=== PATIENT | male | born 1940 | race Caucasian/White ===

== ENCOUNTER 2021-08-17 19:09 | Inpatient (IN) ==
[2021-08-17] MEDS ORDERED: SODIUM CHLORIDE 0.9% 500 ML IV ONE (19:34)
--- NOTE | 2021-08-17 19:46 | XRay Report ---
XR chest 1V portable CLINICAL HISTORY: cough COMPARISON STUDY: Chest radiograph September 22, 2018. FINDINGS: Lung volumes are mildly diminished. There is no pneumothorax or pleural effusion. There is interstitial thickening with multifocal bilateral airspace opacities. Specifically, there is left per ihilar and left midlung airspace opacity as well as possible right upper lung opacity Cardiac size is at the upper limits of normal. IMPRESSION: Multifocal bilateral airspace opacities and interstitial thickening. The findings favor multifocal pneumonia. Radiographic follow-up to ensure resolution is recommended. ACT 112: Negative or not required by law. Electronically signed by: Vishal Muñoz M.D. 08/17/2021 7:44 PM
--- NOTE | 2021-08-17 19:51 | Emergency Department Note ---
Impression & Plan 2019 novel coronavirus-infected pneumonia (NCIP), Breathlessness, Hypoxia, Acute hyponatremia ED Provider Note Provider: Titus Anthony MD DATE OF SERVICE: 08/17/2021 CHIEF COMPLAINT: Shortness of breath, fatigue HISTORY OF PRESENT ILLNESS: Patient is a 81-year-old gentleman past medical hi story including hypertension, pneumonia, laryngeal cancer presenting here today via ambulance from home reporting of the past 10 days he has been ill with generalized weakness and shortness of breath. Found by EMS to be hypoxic into the 70s on room air. Not vaccinated for Covid and Covid exposure about 2 weeks ago. Patient does report some diarrhea and some mild abdominal upset. Patient denies any alteration of taste or smell but states has not been eating or drinking that well. Denies any falls or syncope. Denies chest pain or abdominal pain. Patient has been using Tylenol intermittently he states his 's been giving him and states he has had some fevers. Patient denies a smoking history. REVIEW OF SYSTEMS: A total of 10 review of systems was obtained and negative except as stated above in the HPI. PAST MEDICAL HISTORY: As noted above MEDICATIONS: Reviewed home medications the patient includes baby aspirin SOCIAL HISTORY: Non-smoker lives at home with PHYSICAL EXAM: GENERAL: alert and oriented in no acute distress on stretcher however quite fatigued appearing, somewhat hard of hearing Head: normocephalic and atraumatic EYES: No injection, discharge or icterus. NECK: Trachea midline. ENT: Mucous membranes pink and moist. LUNGS: Airway patent. No retractions however mildly tachypneic. Breath sounds clear without significant wheeze appreciated HEART: Regular tachycardic rate and rhythm. No chest wall tenderness ABDOMEN: Soft and non-tender, without guarding or rebound. SKIN: Acyanotic, warm, dry, without rashes EXTREMITIES: Without swelling, tenderness or deformity NEUROLOGICAL: No focal deficits moving all extremities. No aphasia. No facial droop or slurred speech. EK bpm sinus tachycardia without PVC or PAC. No acute ST segment elevation with a left axis and right bundle branch block with significant anterior T wave inversions noted compared to previous from September 092017 slightly increased heart rate but similar morphology otherwise. CONTINUOUS CARDIAC MONITORING: was ordered and showed a heart rate of 100s-140s bpm in sinus tachycardia Patient's laboratory studies and imaging reviewed. Differential includes Infection, dehydration, metabolic abnormality, hypo/hyperglycemia, electrolyte disturbance, anemia, hypoxia, cardiac sources, intracerebral event, toxicologic, neurologic, as well as other pathologies. IMPRESSION/MEDICAL DECISION MAKING: Patient presents tachycardic and hypoxic not vaccinated for Covid with recent exposure reported. X-ray with multifocal airspace opacities questioning pneumonia. Lactate and cultures ordered in addition to basic blood work. Patient not having active chest pain question possible sepsis with pneumonia versus Covid. Blood work with elevated white blood cell count of 21 on the patient does have a chronic elevation in the mid teens from records. Acute hyponatremia of 126 is noted with stable renal function. Troponin not elevated. No transaminitis. TSH within normal limits. Pancreatitis unlikely given a normal lipase. Procalcitonin barely detectable at 0.41. Given this and the x-ray findings with his tachycardia he did receive a small amount of IV fluid here as well as empiric coverage with ceftriaxone for any overlying bacterial component to his respiratory complaints. Order CT of the chest to exclude PE given his tachycardia and hypoxia although likely it is related to Covid. The patient appears on initial reassessment less tachycardia; believe he did improved some to some small amount of fluid hydration here. Covid test returns positive. Given dexamethasone. Updated the patient and patient use the urinal on the side became more tachycardic. Somewhat tenuous on oxygen mask now at 6 to 8 L and as such high flow nasal O2 ordered. Patient did seem to improve on this. Hospitalist contacted for admission. DIAGNOSIS: COVID-19 pneumonia, hypoxia, shortness of breath, hyponatremia DISPOSITION: Hospitalist will evaluate Patient was agreeable with this plan. Critical Care I have personally spent 34 minutes of critical care time in the direct management of this patient. This includes bedside care, interpretation of d iagnostic studies, and testing, discussion with consultants, patient, and other required patient management activities. These 34 minutes is in excess of all separately billable procedures. Past Med/Surg History Medical History (Updated 08/17/21 @ 22:10 by Titus Anthony M.D.) Chronic kidney disease HLD (hyperlipidemia) HTN (hypertension) Vocal cord paralysis Surgical History (Updated 09/13/18 @ 12:02 by Moisés Hankins MD) H/O laryngectomy Hemilaryngectomy History of radical neck dissection Hx of colonoscopy Family History Other Family history non-contributory Social History Smoking Status: Never smoker Second Hand Exposure: No; Hx Alcohol Use: No Hx Substance Use: No Preferred Language: Luxembourgish Communication Ability: Effective Visual Impairment: No Limitations Shoe Stainer Required: No Beliefs That Will Affect Care: None Current Living Situation: Family Feels Safe at Home: Yes Assistive Devices: Denture - Upper, Denture - Lower and Glasses Allergies Allergies Allergy/AdvReac Type Severity Reaction Status Date / Time Sulfa (Sulfonamide Allergy Unknown Verified 08/17/21 19:42 Antibiotics) Home Meds Home Medications Medication Instructions Recorded Confirmed carvedilol 6.25 mg tablet 6.25 mg PO BID 09/09/18 08/17/21 lisinopril 10 mg tablet 10 mg PO DAILY 09/09/18 08/17/21 simvastatin 20 mg tablet 20 mg PO DAILY 09/09/18 08/17/21 aspirin 81 mg tablet,delayed 81 mg PO DAILY 08/17/21 08/17/21 release cholecalciferol (vitamin D3) 25 0 mcg PO DAILY 08/17/21 08/17/21 mcg (1,000 unit) capsule (Vitamin D3) zinc 50 mg tablet 0 mg PO DAILY 08/17/21 08/17/21 Results & Data (ED) Vital Signs Vital Signs - 24 hr 08/17/21 19:18 08/17/21 20:59 08/17/21 21:46 Temperature 37.1 C Temperature Source Oral Pulse Rate 124 H Pulse Rate [Right Finger] 113 H 138 H Pulse Rhythm Regular Pulse Strength Normal Respiratory Rate 26 H 36 H 45 H Respiratory Effort / Characteristics Non-Labored Spontaneous Labored Respiratory Depth Normal Normal Respiratory Pattern Regular Blood Pressure 110/78 Blood Pressure [Right Arm] 105/78 Blood Pressure Mean 88 Blood Pressure Mean [Right Arm] 87 Blood Pressure Position Sitting Pulse Oximetry 86 L 94 80 L Oxygen Delivery Method Room Air Nasal Cannula Oxygen Flow Rate 4 Fraction of Inspired Oxygen Sepsis Recent Fever Within 48 Hours Yes Sepsis New/Unexplained Change in Mental Status No Sepsis Action Taken by Nursing No Action Required 08/17/21 22:00 08/17/21 22:01 Temperature Temperature Source Pulse Rate Pulse Rate [Right Finger] 115 H 114 H Pulse Rhythm Pulse Strength Respiratory Rate 23 20 Respiratory Effort / Characteristics Spontaneous Respiratory Depth Normal Respiratory Pattern Blood Pressure Blood Pressure [Right Arm] 116/79 Blood Pressure Mean Blood Pressure Mean [Right Arm] 91 Blood Pressure Position Pulse Oximetry 95 94 Oxygen Delivery Method High Flow Nasal Cannula High Flow Nasal Cannula Oxygen Flow Rate 35 Fraction of Inspired Oxygen 60 Sepsis Recent Fever Within 48 Hours Sepsis New/Unexplained Change in Mental Status Sepsis Action Taken by Nursing Laboratory Data Result diagrams: 08/17/21 19:08/17/21 19:25 Lab Results 08/17/21 08/17/21 08/17/21 Range/Units 19:25 19:25 19: WBC 21.05 H (4.8-10.8) K/uL RBC 4.24 L (4.7-6.1) M/uL Hgb 14.2 (14.0-18.0) g/dL Hct 39.5 L (42-52) % MCV 93.2 (80-100) fL MCH 33.5 (25-34) pg MCHC 35.9 (32-36) g/dL RDW Std Deviation 41.4 (36.4-46.3) fL RDW Coeff of Chase 12.2 (11.5-14.5) % Plt Count 288 (130-400) K/uL MPV 9.4 (7.4-10.4) fL Immature Gran % (Auto) 0.4 % Neut % (Auto) 92.2 % Lymph % (Auto) 4.8 % [place] % (Auto) 2.1 % Eos % (Auto) 0.4 % Baso % (Auto) 0.1 % Neut # (Auto) 19.38 H (1.4-6.5) K/uL Lymph # (Auto) 1.01 L (1.2-3.4) K/uL [place] # (Auto) 0.45 (0.11-0.59) K/uL Eos # (Auto) 0.09 (0-0.5) K/uL Baso # (Auto) 0.03 (0-0.2) K/uL Immature Gran # (Auto) 0.09 H (0.00-0.02) K/uL Sodium 126 L (136-145) mmol/L Potassium 4.4 (3.5-5.1) mmol/L Chloride 96 L (98-107) mmol/L Carbon Dioxide 24 (21-32) mmol/L Anion Gap 6.0 (3-11) BUN 27 H (7-18) mg/dl Creatinine 1.34 (0.6-1.4) mg/dl Est Cr Clr Drug Dosing 43.4 ml/min Est GFR ( Amer) 57.2 ml/min Est GFR (Non-Af Amer) 49.3 ml/min BUN/Creatinine Ratio 20.2 H (10-20) Glucose 142 H (70-99) mg/dl Osmolality (280-300) mOsm/kg Lactate (0.4-2.0) mmol/L Calcium 9.0 (8.5-10.1) mg/dl Magnesium 2.0 (1.8-2.4) mg/dl Total Bilirubin 0.5 (0.2-1) mg/dl AST 32 (15-37) U/L ALT 22 (12-78) U/L Alkaline Phosphatase 86 (45-117) U/L Troponin I < 0.015 (0-0.045) ng/ml Total Protein 6.8 (6.4-8.2) gm/dl Albumin 2.2 L (3.4-5.0) gm/dl Globulin 4.6 H (2.5-4.0) gm/dl Albumin/Globulin Ratio 0.5 L (0.9-2) Lipase 74 (73-393) U/L Procalcitonin 0.41 (0-0.5) ng/ml TSH 1.730 (0.300-4.500) uIu/ml COVID-19 Eval Order SARS-CoV-2 (PCR) (Negative) 08/17/21 08/17/21 08/17/21 Range/Units 19:32 19:34 19:34 WBC (4.8-10.8) K/uL RBC (4.7-6.1) M/uL Hgb (14.0-18.0) g/dL Hct (42-52) % MCV (80-100) fL MCH (25-34) pg MCHC (32-36) g/dL RDW Std Deviation (36.4-46.3) fL RDW Coeff of Chase (11.5-14.5) % Plt Count (130-400) K/uL MPV (7.4-10.4) fL Immature Gran % (Auto) % Neut % (Auto) % Lymph % (Auto) % [place] % (Auto) % Eos % (Auto) % Baso % (Auto) % Neut # (Auto) (1.4-6.5) K/uL Lymph # (Auto) (1.2-3.4) K/uL [place] # (Auto) (0.11-0.59) K/uL Eos # (Auto) (0-0.5) K/uL Baso # (Auto) (0-0.2) K/uL Immature Gran # (Auto) (0.00-0.02) K/uL Sodium (136-145) mmol/L Potassium (3.5-5.1) mmol/L Chloride (98-107) mmol/L Carbon Dioxide (21-32) mmol/L Anion Gap (3-11) BUN (7-18) mg/dl Creatinine (0.6-1.4) mg/dl Est Cr Clr Drug Dosing ml/min Est GFR ( Amer) ml/min Est GFR (Non-Af Amer) ml/min BUN/Creatinine Ratio (10-20) Glucose (70-99) mg/dl Osmolality 271 L (280-300) mOsm/kg Lactate (0.4-2.0) mmol/L Calcium (8.5-10.1) mg/dl Magnesium (1.8-2.4) mg/dl Total Bilirubin (0.2-1) mg/dl AST (15-37) U/L ALT (12-78) U/L Alkaline Phosphatase (45-117) U/L Troponin I (0-0.045) ng/ml Total Protein (6.4-8.2) gm/dl Albumin (3.4-5.0) gm/dl Globulin (2.5-4.0) gm/dl Albumin/Globulin Ratio (0.9-2) Lipase (73-393) U/L Procalcitonin (0-0.5) ng/ml TSH (0.300-4.500) uIu/ml COVID-19 Eval Order Covid19 at [facility] SARS-CoV-2 (PCR) POSITIVE A* (Negative) 08/17/21 Range/Units 19:43 WBC (4.8-10.8) K/uL RBC (4.7-6.1) M/uL Hgb (14.0-18.0) g/dL Hct (42-52) % MCV (80-100) fL MCH (25-34) pg MCHC (32-36) g/dL RDW Std Deviation (36.4-46.3) fL RDW Coeff of Chase (11.5-14.5) % Plt Count (130-400) K/uL MPV (7.4-10.4) fL Immature Gran % (Auto) % Neut % (Auto) % Lymph % (Auto) % [place] % (Auto) % Eos % (Auto) % Baso % (Auto) % Neut # (Auto) (1.4-6.5) K/uL Lymph # (Auto) (1.2-3.4) K/uL [place] # (Auto) (0.11-0.59) K/uL Eos # (Auto) (0-0.5) K/uL Baso # (Auto) (0-0.2) K/uL Immature Gran # (Auto) (0.00-0.02) K/uL Sodium (136-145) mmol/L Potassium (3.5-5.1) mmol/L Chloride (98-107) mmol/L Carbon Dioxide (21-32) mmol/L Anion Gap (3-11) BUN (7-18) mg/dl Creatinine (0.6-1.4) mg/dl Est Cr Clr Drug Dosing ml/min Est GFR ( Amer) ml/min Est GFR (Non-Af Amer) ml/min BUN/Creatinine Ratio (10-20) Glucose (70-99) mg/dl Osmolality (280-300) mOsm/kg Lactate 1.3 (0.4-2.0) mmol/L Calcium (8.5-10.1) mg/dl Magnesium (1.8-2.4) mg/dl Total Bilirubin (0.2-1) mg/dl AST (15-37) U/L ALT (12-78) U/L Alkaline Phosphatase (45-117) U/L Troponin I (0-0.045) ng/ml Total Protein (6.4-8.2) gm/dl Albumin (3.4-5.0) gm/dl Globulin (2.5-4.0) gm/dl Albumin/Globulin Ratio (0.9-2) Lipase (73-393) U/L Procalcitonin (0-0.5) ng/ml TSH (0.300-4.500) uIu/ml COVID-19 Eval Order SARS-CoV-2 (PCR) (Negative) Administered Medications Discontinued Medications Dexamethasone Sodium Phosphate (DexamethasonePf 10 Mg/Ml Vial) 6 mg IV NOW ONE Stop: 08/17/21 21:50 Last Admin: 08/17/21 21:59 Dose: 6 mg Documented by: [id number] Sodium Chloride (Nss) 500 mls @ 999 mls/hr IV .Q31M ONE Stop: 08/17/21 20:04 Last Infusion: 08/17/21 20:09 Dose: 0 mls/hr Documented by: [id number] Admin: 08/17/21 19:35 Dose: 999 mls/hr Documented by: [id number] Ceftriaxone Sodium (Rocephin) 2,000 mg in 70 mls @ 140 mls/hr IV NOW STA Stop: 08/17/21 21:12 Last Infusion: 08/17/21 21:25 Dose: 0 mls/hr Documented by: [id number] Admin: 08/17/21 20:59 Dose: 140 mls/hr Documented by: [id number] Ioversol (Optiray 320 125ml) 110 ml IV ONCE ONE Stop: 08/17/21 22:13 Last Admin: 08/17/21 22:16 Dose: 110 ml Documented by: [id number] Imaging Data Radiologist's Impression: Chest X-Ray 08/17/21 19:25 XR chest 1V portable CLINICAL HISTORY: cough COMPARISON STUDY: Chest radiograph September 22, 2018. FINDINGS: Lung volumes are mildly diminished. There is no pneumothorax or pleural effusion. There is interstitial thickening with multifocal bilateral airspace opacities. Specifically, there is left perihilar and left midlung airspace opacity as well as possible right upper lung opacity Cardiac size is at the upper limits of normal. IMPRESSION: Multifocal bilateral airspace opacities and interstitial thickening. The findings favor multifocal pneumonia. Radiographic follow-up to ensure resolution is recommended. ACT 112: Negative or not required by law. Electronically signed by: Vishal Muñoz M.D. 08/17/2021 7:44 PM Discharge Plan Visit Data Chief Complaint: Illness Stated Complaint: ILLNESS ED Provider: Titus Anthony Discharge Problem: 2019 novel coronavirus-infected pneumonia (NCIP), Breathlessness, Hypoxia, Acute hyponatremia Patient Disposition: Admitted As Inpatient Forms Stand Alone Forms: My [facility] Prescriptions Prescriptions: No Action simvastatin 20 mg tablet 20 mg PO DAILY RF: 0 lisinopril 10 mg tablet 10 mg PO DAILY RF: 0 carvedilol 6.25 mg tablet 6.25 mg PO BID RF: 0 aspirin 81 mg Tablet,Delayed Release (Dr/Ec) 81 mg PO DAILY RF: 0 zinc 50 mg Tablet 0 mg PO DAILY RF: 0 cholecalciferol (vitamin D3) [Vitamin D3] 25 mcg (1,000 unit) Capsule 0 mcg PO DAILY RF: 0 Referrals Referrals: Mirza Tee MD [Primary Care Provider] -
[2021-08-17 19:52] LABS: Basophils # (auto) 0.03 K/uL (0-0.2); Basophils % (auto) 0.1 %; Eosinophils # (auto) 0.09 K/uL (0-0.5); Eosinophils % (auto) 0.4 %; Hematocrit (blood only) 39.5 % (42-52); Hemoglobin 14.2 g/dL (14.0-18.0); Immature Granulocytes # (auto) 0.09 K/uL (0.00-0.02); Immature Granulocytes % (auto) 0.4 %; Lymphocytes # (auto) 1.01 K/uL (1.2-3.4); Lymphocytes % (auto) 4.8 %; Mean Corpuscular Hemoglobin 33.5 pg (25-34); Mean Corpuscular Hgb Conc 35.9 g/dL (32-36); Mean Corpuscular Volume 93.2 fL (80-100); Mean Platelet Volume 9.4 fL (7.4-10.4); Monocytes # (auto) 0.45 K/uL (0.11-0.59); Monocytes % (auto) 2.1 %; Neutrophils # (auto) 19.38 K/uL (1.4-6.5); Neutrophils % (auto) 92.2 %; Platelet Count 288 K/uL (130-400); RDW Coefficient of Variation 12.2 % (11.5-14.5); RDW Standard Deviation 41.4 fL (36.4-46.3); Red Blood Count 4.24 M/uL (4.7-6.1); White Blood Count 21.05 K/uL (4.8-10.8)
[2021-08-17 20:14] LABS: Alanine Aminotransferase 22 U/L (12-78); Albumin Level 2.2 gm/dl (3.4-5.0); Aspartate Aminotransferase 32 U/L (15-37); BUN Creatinine Ratio 20.2 (10-20); Blood Urea Nitrogen 27 mg/dl (7-18); Carbon Dioxide 24 mmol/L (21-32); Chloride 96 mmol/L (98-107); Creatinine Clr Calc Pharmacy 43.4 ml/min; Est GFR (African American) 57.2 ml/min; Est GFR (Non-African American) 49.3 ml/min; Glucose 142 mg/dl (70-99); Lipase 74 U/L (73-393); Potassium 4.4 mmol/L (3.5-5.1); Sodium 126 mmol/L (136-145)
[2021-08-17 20:25] LABS: Albumin Globulin Ratio 0.5 (0.9-2); Alkaline Phosphatase 86 U/L (45-117); Bilirubin,Total 0.5 mg/dl (0.2-1); Globulin 4.6 gm/dl (2.5-4.0); Total Protein 6.8 gm/dl (6.4-8.2); Troponin I < 0.015 ng/ml (0-0.045)
[2021-08-17] MEDS ORDERED: cefTRIAXone SODIUM 2,000 MG/70 ML BAG IV STA (20:43)
[2021-08-17] MEDS ORDERED: dexAMETHasone**PF** 10 MG/ML VIAL IV ONE (21:49)
[2021-08-17] MEDS ORDERED: OPTIRAY 320 125ml IV ONE (22:12)
[2021-08-17 22:30] LABS: Partial Thromboplastin Ratio 1.2; Partial Thromboplastin Time 30.9 Seconds (21.0-31.0)
[2021-08-17 23:08] LABS: Base Excess ABG -2.6 mEq/L (-9-1.8); HCO3 ABG 20 mmol/L (19-24); Oxygen Saturation ABG 94.8 % (90-95); PCO2 ABG 30 mmHg (35-46); PO2 ABG 68 mmHg (80-95); pH ABG 7.44 (7.35-7.45)
[2021-08-17] MEDS ORDERED: MAGNESIUM SULFATE / D5W 1 GM/100 ML BAG IV ONE (23:12)
[2021-08-17] MEDS ORDERED: MAGNESIUM SULFATE 1GM / D5W BAG IV ONE (23:20)
[2021-08-17 23:22] LABS: Allen Test POS (Pos)
[2021-08-17] MEDS ORDERED: REMDESIVIR 200 MG in SODIUM CHLORIDE 0.9% 210 ML IV STA (23:27)
--- NOTE | 2021-08-17 23:27 | History & Physical Report ---
Date of Service August 17, 2021 Assessment & Plan (1) Acute respiratory failure with hypoxia: Plan: Secondary to severe COVID-19 pneumonia Possible COPD exacerbation hypertension, BP on the lower side hyperlipidemia on statin Rx CRI, serum creatinine better than baseline laryngeal cancer status post partial surgery Hyperglycemia rule out DM past tobacco abuse. Medical telemetry Supplemental O2 Decadron and Remdesivir for severe COVID-19 pneumonia. (Patient was counseled regarding potential adverse effects from Remdesivir therapy and provided with patient education sheet.) Nebs as needed given wheezing No indication for antibiotic Rx for now Pulmonary consult if without improvement. Check hemoglobin A1c DVT prophylaxis per Lovenox subcu DNR Patient's daughter requesting updates from providers. Ms. Tash Claros, contact #[phone]. Text document was generated using [employer] voice recognition software. It may contain grammatical or spelling errors. Kindly contact undersigned for clarification of any documentation item in question. History of Present Illness Chief Complaint: Worsening shortness of breath, Covid exposure Primary Care Provider: Mirza Tee MD History obtained from patient, family, and records. History somewhat limited from patient secondary to hearing impairment. Medical history significant for COPD, chronic vocal cord paralysis, hypertension, hyperlipidemia, PVD, CRI (baseline creatinine 1.3), laryngeal cancer status post partial surgery, past tobacco abuse. Last confinement August 2018 for pneumonia. 1 week history of dry cough symptoms, and generalized weakness with worsening shortness of breath. No actual chest pain. GI upset with diarrhea symptoms. Possible sick COVID-19 contacts. Patient has not received COVID-19 vaccination. O2 sats 80s at the ER. Patient given Decadron at the ER. Ceftriaxone given for pneumonia. 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 Allergies Allergy/AdvReac Type Severity Reaction Status Date / Time Sulfa (Sulfonamide Allergy Unknown Verified 08/17/21 19:42 Antibiotics) Home Medications Medication Instructions Recorded Confirmed Type carvedilol 6.25 mg tablet 6.25 mg PO BID 09/09/18 08/17/21 History lisinopril 10 mg tablet 10 mg PO DAILY 09/09/18 08/17/21 History simvastatin 20 mg tablet 20 mg PO DAILY 09/09/18 08/17/21 History aspirin 81 mg tablet,delayed 81 mg PO DAILY 08/17/21 08/17/21 History release cholecalciferol (vitamin D3) 25 0 mcg PO DAILY 08/17/21 08/17/21 History mcg (1,000 unit) capsule (Vitamin D3) zinc 50 mg tablet 0 mg PO DAILY 08/17/21 08/17/21 History Past Med/Surg History Medical History (Updated 08/18/21 @ 07:55 by Wali Dickens MD) Chronic kidney disease HLD (hyperlipidemia) HTN (hypertension) Vocal cord paralysis Surgical History (Updated 09/13/18 @ 12:02 by Moisés Hankins MD) H/O laryngectomy Hemilaryngectomy History of radical neck dissection Hx of colonoscopy Family History Other Family history non-contributory Social History Smoking Status: Never smoker Second Hand Exposure: No; Do You Dip or Chew Tobacco: No; Hx Alcohol Use: No Hx Substance Use: No Preferred Language: Romanian Communication Ability: Effective Visual Impairment: No Limitations Taffy Puller Required: No Beliefs That Will Affect Care: None Current Living Situation: Spouse Current Living Situation Comment: lives with Other Information That Helps Us Care for You: No Feels Safe at Home: Yes Safety Concerns: Feels Safe At This Time Assistive Devices: Cane Review of Systems Review of Systems: As per HPI, all 10 systems reviewed, all other ROS negative Physical Exam Physical Exam: GENERAL: Slightly uncomfortable, hard of hearing, dysphonic, minimal respiratory distress SKIN: Normal color, warm HEENT: [place] palpebral conjunctivae, no ptosis, dry buccal mucosa, nasal cannula in place NECK : Supple, no tenderness CHEST : Decreased breath sounds, occasional expiratory wheezes, no tenderness HEART : Tachycardic, no obvious murmurs ABDOMEN: Some distention, nontender EXTREMITIES : No LE swelling/tenderness, no other conspicuous deformities noted NEUROLOGIC : Coherent, no facial asymmetry, hard of hearing, dysphonic, no other gross focality Results & Data Results & Data ([facility]) Vital Signs (Past 12 Hours) Vital Signs Temp Pulse Pulse Resp BP BP Pulse Ox 08/17/21 22:55 110 H 29 H 94 08/17/21 22:01 114 H 20 94 08/17/21 22:00 115 H 23 116/79 95 08/17/21 21:46 138 H 45 H 80 L 08/17/21 20:59 113 H 36 H 105/78 94 08/17/21 19:18 37.1 C 124 H 26 H 110/78 86 L Laboratory Results Laboratory Results WBC 21.05 K/uL (4.8-10.8) H 08/17/21 19:25 RBC 4.24 M/uL (4.7-6.1) L 08/17/21 19:25 Hgb 14.2 g/dL (14.0-18.0) 08/17/21 19: Hct 39.5 % (42-52) L 08/17/21 19: MCV 93.2 fL (80-100) 08/17/21 19: MCH 33.5 pg (25-34) 08/17/21 19: MCHC 35.9 g/dL (32-36) 08/17/21 19: RDW Std Deviation 41.4 fL (36.4-46.3) 08/17/21 19: RDW Coeff of Chase 12.2 % (11.5-14.5) 08/17/21: Plt Count 288 K/uL (130-400) 08/17/21 19:25 MPV 9.4 fL (7.4-10.4) 08/17/21 19:25 Immature Gran % (Auto) 0.4 % 08/17/21 19:25 Neut % (Auto) 92.2 % 08/17/21 19: Lymph % (Auto) 4.8 % 08/17/21 19:25 Chambers % (Auto) 2.1 % 08/17/21 19:25 Eos % (Auto) 0.4 % 08/17/21 19:25 Baso % (Auto) 0.1 % 08/17/21 19:25 Neut # (Auto) 19.38 K/uL (1.4-6.5) H 08/17/21 19:25 Lymph # (Auto) 1.01 K/uL (1.2-3.4) L 08/17/21 19:25 Chambers # (Auto) 0.45 K/uL (0.11-0.59) 08/17/21 19:25 Eos # (Auto) 0.09 K/uL (0-0.5) 08/17/21 19:25 Baso # (Auto) 0.03 K/uL (0-0.2) 08/17/21 19:25 Immature Gran # (Auto) 0.09 K/uL (0.00-0.02) H 08/17/21 19:25 APTT 30.9 Seconds (21.0-31.0) 08/17/21 19: PTT Ratio 1.2 08/17/21 19:25 ABG pH 7.44 (7.35-7.45) 08/17/21 22:56 ABG pCO2 30 mmHg (35-46) L 08/17/21 22:56 ABG pO2 68 mmHg (80-95) L 08/17/21 22:56 ABG HCO3 20 mmol/L (19-24) 08/17/21 22:56 ABG O2 Saturation 94.8 % (90-95) 08/17/21 22:56 ABG Base Excess -2.6 mEq/L (-9-1.8) 08/17/21 22:56 David Test POS (Pos) 08/17/21 22:56 Barometric Pressure 724.5 mm/Hg 08/17/21 22:56 Oxygen Given 35 08/17/21 22:56 Sodium 126 mmol/L (136-145) L 08/17/21 19:25 Potassium 4.4 mmol/L (3.5-5.1) 08/17/21 19:25 Chloride 96 mmol/L (98-107) L 08/17/21 19:25 Carbon Dioxide 24 mmol/L (21-32) 08/17/21 19:25 Anion Gap 6.0 (3-11) 08/17/21 19:25 BUN 27 mg/dl (7-18) H 08/17/21 19:25 Creatinine 1.34 mg/dl (0.6-1.4) 08/17/21 19:25 Est Cr Clr Drug Dosing 43.4 ml/min 08/17/21 19:25 Est GFR ( Amer) 57.2 ml/min 08/17/21 19:25 Est GFR (Non-Af Amer) 49.3 ml/min 08/17/21 19:25 BUN/Creatinine Ratio 20.2 (10-20) H 08/17/21 19:25 Glucose 142 mg/dl (70-99) H 08/17/21 19:25 Osmolality 271 mOsm/kg (280-300) L 08/17/21 19:32 Lactate 1.3 mmol/L (0.4-2.0) 08/17/21 19:43 Calcium 9.0 mg/dl (8.5-10.1) 08/17/21 19:25 Magnesium 2.0 mg/dl (1.8-2.4) 08/17/21 19:25 Total Bilirubin 0.5 mg/dl (0.2-1) 08/17/21 19:25 AST 32 U/L (15-37) 08/17/21 19:25 ALT 22 U/L (12-78) 08/17/21 19:25 Alkaline Phosphatase 86 U/L (45-117) 08/17/21 19:25 Troponin I < 0.015 ng/ml (0-0.045) 08/17/21 19:25 Total Protein 6.8 gm/dl (6.4-8.2) 08/17/21 19:25 Albumin 2.2 gm/dl (3.4-5.0) L 08/17/21 19:25 Globulin 4.6 gm/dl (2.5-4.0) H 08/17/21 19:25 Albumin/Globulin Ratio 0.5 (0.9-2) L 08/17/21 19: Lipase 74 U/L (73-393) 08/17/21 19:25 Procalcitonin 0.41 ng/ml (0-0.5) 08/17/21 19:25 TSH 1.730 uIu/ml (0.300-4.500) 08/17/21 19:25 COVID-19 Eval Order Covid19 at [facility] 08/17/21 19:34 SARS-CoV-2 (PCR) POSITIVE (Negative) A* 08/17/21 19:34 Impressions Chest X-Ray 08/17/21 19:25 XR chest 1V portable CLINICAL HISTORY: cough COMPARISON STUDY: Chest radiograph September 22, 2018. FINDINGS: Lung volumes are mildly diminished. There is no pneumothorax or pleural effusion. There is interstitial thickening with multifocal bilateral airspace opacities. Specifically, there is left perihilar and left midlung airspace opacity as well as possible right upper lung opacity Cardiac size is at the upper limits of normal. IMPRESSION: Multifocal bilateral airspace opacities and interstitial thickening. The findings favor multifocal pneumonia. Radiographic follow-up to ensure resolution is recommended. ACT 112: Negative or not required by law. Electronically signed by: Vishal Muñoz M.D. 08/17/2021 7:[address] chest initial read: Allowing for limitations, no apparent central pulmonaryemboli. Bilateral pulmonaryinfiltrates. Mild mediastinal and hilar adenopathy. Cardiomegaly. Small hiatal hernia EKG as per my interpretation:Rate 120, sinus tachycardia, LAD, LAFB, RBBB, LVH
[2021-08-17] MEDS ORDERED: LEVALBUTEROL 1.25MG/0.5ML NEB INH STA (23:31)
[2021-08-17] MEDS ORDERED: XOPENEX/ATROVENT 1.25mg/0.5MG NEB COMBO NEB STA (23:31)
[2021-08-17] MEDS ORDERED: IPRATROPIUM BROMIDE NEB SOLN 0.02% 2.5 ML VIAL INH STA (23:31)
[2021-08-17] MEDS ORDERED: METOPROLOL TARTRATE 25 MG TAB PO STA (23:35)
[2021-08-17] MEDS ORDERED: SODIUM CHLORIDE 0.9% 1000ML 1,000 ML IV ONE (23:35)
[2021-08-18] MEDS ORDERED: PROMETHAZINE HCL 12.5 MG in SODIUM CHLORIDE 0.9% 50 ML IV PRN (00:50)
[2021-08-18] MEDS ORDERED: ACETAMINOPHEN 325 MG TAB PO PRN (00:50)
[2021-08-18] MEDS ORDERED: LEVALBUTEROL TARTRATE 15 GM HFA.AER.AD INH PRN (00:50)
[2021-08-18] MEDS ORDERED: METOPROLOL TARTRATE 1 MG/ML VIAL IV ONE (01:52)
[2021-08-18 02:01] LABS: Appearance Urine Clear (Clear); Bilirubin Urine Negative (Negative); Blood Urine 1+ (Negative); Cast Urine Automated 0 /lpf (0-5); Color Urine Yellow; Glucose Urine UA Negative (Negative); Ketones Urine Negative (Negative); Leukocyte Esterase Urine Negative (Negative); Nitrite Urine Negative (Negative); Protein Urine 1+ (Negative); RBC Urine Automated 0-4 /hpf (0-4); Specific Gravity Urine 1.041 (1.000-1.030); Urobilinogen Urine Negative (Negative); pH Urine 5.5 (4.5-7.5)
[2021-08-18] MEDS: guaiFENesin 600 MG TABCR PO SCH ×3 (02:04→20:25)
[2021-08-18 02:11] LABS: Bacteria Urine Automated 1+ (Negative)
[2021-08-18] MEDS ORDERED: SODIUM CHLORIDE 0.9% 10ML FLUSH IV SCH (03:00)
[2021-08-18] MEDS ORDERED: XOPENEX/ATROVENT 1.25mg/0.5MG NEB COMBO NEB STA (03:48)
[2021-08-18] MEDS ORDERED: IPRATROPIUM BROMIDE NEB SOLN 0.02% 2.5 ML VIAL INH STA (04:14)
[2021-08-18] MEDS ORDERED: LEVALBUTEROL 1.25MG/0.5ML NEB INH STA (04:14)
[2021-08-18] MEDS: dexAMETHasone 6 MG in SYRINGE 0 ML IV SCH (04:54)
[2021-08-18 05:08] LABS: Estimated Average Glucose 126 mg/dl
[2021-08-18 07:25] LABS: Hematocrit (blood only) 38.7 % (42-52); Hemoglobin 13.8 g/dL (14.0-18.0); Mean Corpuscular Hemoglobin 33.1 pg (25-34); Mean Corpuscular Hgb Conc 35.7 g/dL (32-36); Mean Corpuscular Volume 92.8 fL (80-100); Mean Platelet Volume 9.3 fL (7.4-10.4); Platelet Count 293 K/uL (130-400); RDW Coefficient of Variation 12.3 % (11.5-14.5); RDW Standard Deviation 41.8 fL (36.4-46.3); Red Blood Count 4.17 M/uL (4.7-6.1); White Blood Count 19.31 K/uL (4.8-10.8)
[2021-08-18 07:47] LABS: Basophils # (auto) 0.02 K/uL (0-0.2); Basophils % (auto) 0.1 %; Immature Granulocytes # (auto) 0.05 K/uL (0.00-0.02); Immature Granulocytes % (auto) 0.3 %; Lymphocytes # (auto) 0.54 K/uL (1.2-3.4); Lymphocytes % (auto) 2.8 %; Monocytes # (auto) 0.47 K/uL (0.11-0.59); Monocytes % (auto) 2.4 %; Neutrophils # (auto) 18.23 K/uL (1.4-6.5); Neutrophils % (auto) 94.4 %
[2021-08-18 08:00] LABS: Albumin Level 2.1 gm/dl (3.4-5.0); BUN Creatinine Ratio 16.9 (10-20); Calcium 9.1 mg/dl (8.5-10.1); Creatinine Clr Calc Pharmacy 39.9 ml/min; Est GFR (African American) 58.8 ml/min; Est GFR (Non-African American) 50.7 ml/min; Potassium 4.8 mmol/L (3.5-5.1)
[2021-08-18] MEDS: carvediloL 3.125 MG TAB PO SCH ×2 (08:08→20:24)
[2021-08-18] MEDS: SIMVASTATIN 20 MG TAB PO SCH (08:09)
[2021-08-18] MEDS: ASPIRIN 81 MG ECTAB PO SCH (08:09)
[2021-08-18 08:10] LABS: Albumin Globulin Ratio 0.5 (0.9-2); Bilirubin,Total 0.3 mg/dl (0.2-1); C Reactive Protein 27.6 mg/dl (0-0.29); Globulin 4.6 gm/dl (2.5-4.0); Total Protein 6.7 gm/dl (6.4-8.2)
--- NOTE | 2021-08-18 08:56 | CT Scan Report ---
CT ANGIOGRAPHY OF THE CHEST, PULMONARY EMBOLUS PROTOCOL CLINICAL HISTORY: PE, shortness of breath, tachycardia and hypoxia COMPARISON STUDY: Chest CT September 09, 2018. Chest radiograph August 17, 2021. TECHNIQUE: Following IV administration of 110 mL of Optiray, helical axial images of the chest were o btained utilizing the pulmonary embolus protocol. Maximal intensity projections and sagittal and cor onal reformats were viewed on an independent 3D workstation. IV contrast was administered without co mplication. Automated exposure control was utilized for the study. A dose lowering technique was ut ilized adhering to the principles of ALARA. CT DOSE: 311.40 mGy.cm FINDINGS: No pulmonary emboli are identified although the segmental and subsegmental pulmonary vesse ls suboptimally assessed due to respiratory motion. There is no pericardial effusion. There are sever al mildly enlarged mediastinal and bilateral hilar lymph nodes. These measure up to 1.3 cm in short a xis diameter. There are extensive groundglass opacities throughout the lungs with multifocal consolid ation, including a 2.3 cm focus of consolidation within the lingula on image 139 of 246. Central airw ays are patent. Lungs are somewhat be assessed due to respiratory motion. There is no pneumothorax or pleural effusion. Visualized portions of the upper abdomen are unremarkable. IMPRESSION: 1. No pulmonary emboli identified although segmental and subsegmental pulmonary arteries suboptimally assessed due to respiratory motion. 2. Extensive multifocal airspace opacities within lungs consistent with viral pneumonia. A follow-up chest CT in 3 months to ensure resolution is recommended. 3. Multiple mildly enlarged mediastinal and bilateral hilar lymph nodes which are likely reactive. ACT 112: Negative or not required by law. Electronically signed by: Vishal Muñoz M.D. 08/18/2021 8:55 AM
[2021-08-18] MEDS ORDERED: dexAMETHasone 6 MG in SYRINGE 0 ML IV SCH (09:00)
--- NOTE | 2021-08-18 12:39 | Hospitalist Progress Note ---
Date of Service August 18, 2021 Assessment & Plan (1) Acute respiratory failure with hypoxia: Plan: Secondary to severe COVID-19 pneumonia Possible COPD exacerbation hypertension, BP on the lower side hyperlipidemia on statin Rx CRI, serum creatinine better than baseline laryngeal cancer status post partial surgery Hyperglycemia rule out DM past tobacco abuse. Overall patient is doing okay. Currently on high flow nasal cannula. CTA is negative for any pulmonary embolism. Globin at 19.3 today. Patient remains afebrile. Hemodynamically doing okay. Decadron and Remdesivir for severe COVID-19 pneumonia. Nebs as needed given wheezing No indication for antibiotic Rx for now. Discontinue maintenance IV fluids. Lovenox for DVT prophylaxis. Pulmonary consult if without improvement. Check hemoglobin A1c DVT prophylaxis per Lovenox subcu DNR Ms. Tash Claros, contact #[phone]; daughter was updated today. Text document was generated using [employer] voice recognition software. It may contain grammatical or spelling errors. Kindly contact undersigned for clarification of any documentation item in question. Admission and Anticipated Discharge Date Admission Date: August 17, 2021 Subjective Overall patient is doing okay. Currently on high flow nasal cannula. Denies any worsening shortness of breath but does endorse cough. Denies any chest pain or abdominal pain. Denies any nausea or vomiting. Oriented to place and person but not time. Review of Systems Review of Systems: All systems reviewed & are unremarkable except as noted in HPI & below Physical Exam Physical Exam: General: A&Ox2 HENT: NCAT, MMM, EOMI Eyes: PERRLA Neck: Supple, normal range of motion CVS: normal rate and rhythm Resp: b/l decrease breath sounds Abdomen: Soft, ND/NT, +BS Extremities: absence of any edema Neuro: face symmetric, no gross focal deficit appreciated Skin: warm and dry MSK: no joint swelling/erythema Results & Data Results & Data ([facility]) Vital Signs (Past 12 Hours) Vital Signs Temp Pulse Pulse Resp BP Pulse Ox 08/18/21 12:00 36.5 C 87 20 118/81 91 08/18/21 11:27 18 88 L 08/18/21 10:42 100 08/18/21 09:00 99 H 08/18/21 07:46 36.5 C 97 H 12 117/74 89 L 08/18/21 07:32 77 18 89 L 08/18/21 05:35 78 18 90 08/18/21 03:15 36.4 C L 98 H 36 H 114/82 89 L 08/18/21 02:58 79 20 92 08/18/21 02:05 96 H 08/18/21 00:50 36.5 C 105 H 28 H 105/73 92
[2021-08-18] MEDS: REMDESIVIR 100 MG in SODIUM CHLORIDE 0.9% 230 ML IV SCH (20:24)
--- NOTE | 2021-08-19 04:52 | Electrocardiogram Report ---
Test Reason : Blood Pressure : / mmHG Vent. Rate : 122 BPM Atrial Rate : 122 BPM P-R Int : 188 ms QRS Dur : 124 ms QT Int : 292 ms P-R-T Axes : 022 -38 -05 degrees QTc Int : 416 ms Poor data quality, interpretation may be adversely affected Sinus tachycardia Left axis deviation Right bundle branch block Minimal voltage criteria for LVH, may be normal variant Abnormal ECG When compared with ECG of 09-SEP-2018 20:46, No significant change was found Confirmed by Toni Browne ([id number]) on 08/19/2021 4:52:25 AM Referred By: REFERRED SELF Confirmed By:Toni Browne
[2021-08-19] MEDS: SIMVASTATIN 20 MG TAB PO SCH (08:38)
[2021-08-19] MEDS: ASPIRIN 81 MG ECTAB PO SCH (08:38)
[2021-08-19] MEDS: carvediloL 3.125 MG TAB PO SCH ×2 (08:38→19:44)
[2021-08-19] MEDS: guaiFENesin 600 MG TABCR PO SCH ×2 (08:38→19:44)
[2021-08-19] MEDS: ENOXAPARIN INJ 40 MG/0.4 ML SYR SQ SCH (08:38)
[2021-08-19] MEDS: dexAMETHasone 6 MG in SYRINGE 0 ML IV SCH (08:38)
--- NOTE | 2021-08-19 14:41 | Hospitalist Progress Note ---
Date of Service August 19, 2021 Assessment & Plan (1) Acute respiratory failure with hypoxia: Plan: Secondary to severe COVID-19 pneumonia Overall patient is doing okay. Currently on high flow nasal cannula. CTA is negative for any pulmonary embolism. White count at 19.3 . Patient remains afebrile. Hemodynamically doing okay. Decadron and Remdesivir for severe COVID-19 pneumonia. Nebs as needed given wheezing Condition is a little worse and requiring high flow oxygen to maintain saturation CRP has been more than 27 Will ask for pulmonary evaluation for possible use of Tocilizumab and/or baricitinib Possible COPD exacerbation No indication for antibiotic Rx for now. Procalcitonin is not elevated hypertension, BP on the lower side hyperlipidemia on statin Rx CRI, serum creatinine better than baseline laryngeal cancer status post partial surgery Hyperglycemia rule out DM Check hemoglobin A1c-6.0 past tobacco abuse. Lovenox for DVT prophylaxis. DVT prophylaxis per Lovenox subcu DNR Ms. Tash Claros, contact #[phone]; daughter was updated today. . Admission and Anticipated Discharge Date Admission Date: August 17, 2021 Subjective 10/19/2021 The patient was seen and examined in telemetry unit and in the Covid room He has pain in complaining of more shortness of breath Requiring 40 L of 90% FiO2 to maintain saturation Has cough Review of Systems Review of Systems: All systems reviewed and are unremarkable except as noted below Respiratory: Moderate shortness of breath at rest Musculoskeletal: Generally weak and lethargic Physical Exam Physical Exam: Sitting on the bed with moderate respiratory distress Constitutional: well developed, well nourished, + ill appearing and + obese Eyes: PERRL, conjunctivae normal, anicteric sclerae ENMT: external ear and nose normal, oropharynx normal Neck: trachea midline, no thyromegaly Respiratory: + respiratory distress and + cough Auscultation: + diminished lung sounds and + crackles (At the bases); no wheezes Gastrointestinal (Abdomen): Inspection/Auscultation: normal bowel sounds; abdomen not distended Percussion/Palpation: abdomen soft; abdomen nontender Musculoskeletal: No acute arthritis in any joint Neurologic: Alert, awake and oriented x3. Generally weak and lethargic Lymphatic: no cervical or axillary lymphadenopathy Results & Data Results & Data ([facility]) Vital Signs (Past 12 Hours) Vital Signs Temp Pulse Pulse Resp BP Pulse Ox 10/27/21 13:44 110 H 24 99 08/19/21 11:32 36.7 C 83 22 95/74 L 95 08/19/21 10:37 20 91 08/19/21 07:45 36.4 C L 91 H 19 116/77 90 08/19/21 07:44 95 H 08/19/21 07:16 90 22 95 08/19/21 05:29 32 H 92 08/19/21 05:15 82 L 08/19/21 04:09 14 91 08/19/21 03:52 90 Medications Administered Current Inpatient Medications Acetaminophen (Acetaminophen 325 Mg Tab) 650 mg PO Q4H PRN PRN Reason: Pain or Fever Stop: 09/17/21 00:49 Last Admin: 08/19/21 12:57 Dose: 650 mg Documented by: Aspirin (Aspirin 81 Mg Ectab) 81 mg PO DAILY [facility] Stop: 09/17/21 08:59 Last Admin: 08/19/21 08:38 Dose: 81 mg Documented by: Carvedilol (Carvedilol 3.125 Mg Tab) 3.125 mg PO BID [facility] Stop: 09/17/21 08:59 Last Admin: 08/19/21 08:38 Dose: 3.125 mg Documented by: Enoxaparin Sodium (Enoxaparin Inj 40 Mg/0.4 Ml Syr) 40 mg SQ QAM [facility] Stop: 09/18/21 08:59 Last Admin: 08/19/21 08:38 Dose: 40 mg Documented by: Guaifenesin (Guaifenesin 600 Mg Tabcr) 600 mg PO Q12 [facility] Stop: 09/17/21 00:49 Last Admin: 08/19/21 08:38 Dose: 600 mg Documented by: Remdesivir 100 mg/ Sodium (Chloride) 250 mls @ 250 mls/hr IV Q24H [facility]; Protocol Stop: 08/21/21 20:59 Last Infusion: 08/18/21 21:46 Dose: Infused Documented by: Promethazine HCl 12.5 mg/ (Sodium Chloride) 50.5 mls @ 202 mls/hr IV Q6H PRN PRN Reason: Nausea And Vomiting Stop: 09/17/21 00:49 Dexamethasone 6 mg/ Syringe 1.5 mls @ 1 mls/min IV DAILY [facility] Stop: 09/17/21 03:49 Last Admin: 08/19/21 08:38 Dose: 1 mls/min Documented by: Levalbuterol HCl (Levalbuterol Tartrate 15 Gm Hfa.Aer.Ad) 2 puffs INH Q4H PRN PRN Reason: sob/wheeze Stop: 09/17/21 00:49 Simvastatin (Simvastatin 20 Mg Tab) 20 mg PO DAILY [facility] Stop: 09/17/21 08:59 Last Admin: 08/19/21 08:38 Dose: 20 mg Documented by:
[2021-08-19] MEDS ORDERED: TOCILIZUMAB IV ONE (17:30)
[2021-08-19] MEDS ORDERED: SODIUM CHLORIDE 0.9% IV ONE (17:30)
[2021-08-19] MEDS: REMDESIVIR 100 MG in SODIUM CHLORIDE 0.9% 230 ML IV SCH (20:13)
[2021-08-20 08:53] LABS: Basophils # (auto) 0.01 K/uL (0-0.2); Basophils % (auto) 0.1 %; Eosinophils # (auto) 0.02 K/uL (0-0.5); Eosinophils % (auto) 0.1 %; Hematocrit (blood only) 39.3 % (42-52); Immature Granulocytes # (auto) 0.08 K/uL (0.00-0.02); Immature Granulocytes % (auto) 0.5 %; Lymphocytes # (auto) 1.24 K/uL (1.2-3.4); Lymphocytes % (auto) 7.5 %; Mean Corpuscular Hemoglobin 33.5 pg (25-34); Mean Corpuscular Hgb Conc 35.6 g/dL (32-36); Mean Platelet Volume 9.1 fL (7.4-10.4); Monocytes # (auto) 0.23 K/uL (0.11-0.59); Monocytes % (auto) 1.4 %; Neutrophils # (auto) 14.93 K/uL (1.4-6.5); Neutrophils % (auto) 90.4 %; Platelet Count 294 K/uL (130-400); RDW Coefficient of Variation 12.5 % (11.5-14.5); RDW Standard Deviation 43.2 fL (36.4-46.3); Red Blood Count 4.18 M/uL (4.7-6.1); White Blood Count 16.51 K/uL (4.8-10.8)
[2021-08-20 09:10] LABS: Albumin Level 2.2 gm/dl (3.4-5.0); BUN Creatinine Ratio 24.1 (10-20); C Reactive Protein 11.6 mg/dl (0-0.29); Calcium 9.5 mg/dl (8.5-10.1); Est GFR (African American) 56.7 ml/min; Est GFR (Non-African American) 48.9 ml/min; Magnesium 2.2 mg/dl (1.8-2.4); Potassium 4.2 mmol/L (3.5-5.1)
[2021-08-20] MEDS: dexAMETHasone 6 MG in SYRINGE 0 ML IV SCH (09:11)
[2021-08-20] MEDS: ASPIRIN 81 MG ECTAB PO SCH (09:12)
[2021-08-20] MEDS: carvediloL 3.125 MG TAB PO SCH ×2 (09:12→20:09)
[2021-08-20] MEDS: SIMVASTATIN 20 MG TAB PO SCH (09:12)
[2021-08-20] MEDS: guaiFENesin 600 MG TABCR PO SCH ×2 (09:12→20:09)
[2021-08-20 09:13] LABS: Albumin Globulin Ratio 0.5 (0.9-2); Bilirubin,Total 0.5 mg/dl (0.2-1); Globulin 4.1 gm/dl (2.5-4.0); Total Protein 6.3 gm/dl (6.4-8.2)
[2021-08-20] MEDS: ENOXAPARIN INJ 40 MG/0.4 ML SYR SQ SCH (09:13)
[2021-08-20] MEDS ORDERED: FUROSEMIDE 40 MG/4 ML VIAL IV ONE (13:07)
--- NOTE | 2021-08-20 14:46 | Hospitalist Progress Note ---
Date of Service August 20, 2021 Assessment & Plan (1) Acute respiratory failure with hypoxia: Plan: Sepsis POAin setting of COVID19 pneumonia Secondary to severe COVID-19 pneumonia Has adult respiratory distress syndrome as per CT criteria and clinical symptoms Overall patient is doing okay. Currently on high flow nasal cannula. CTA is negative for any pulmonary embolism. White count at 19.3 . Patient remains afebrile. Hemodynamically doing okay. Decadron and Remdesivir for severe COVID-19 pneumonia. Nebs as needed given wheezing Condition is a little worse and requiring high flow oxygen to maintain saturation CRP has been more than 27 Discussed with film washer and Tocilizumab has been administered Condition remains unchanged and may be a little worse We will continue current management Possible COPD exacerbation No indication for antibiotic Rx for now. Procalcitonin is not elevated-no antibiotics are rated hypertension, BP on the lower side hyperlipidemia on statin Rx CRI, serum creatinine better than baseline laryngeal cancer status post partial surgery Hyperglycemia rule out DM Check hemoglobin A1c-6.0 past tobacco abuse. Lovenox for DVT prophylaxis. DVT prophylaxis per Lovenox subcu DNR Prognosis remains poor Ms. Tash Claros, contact #[phone]; daughter was updated today. . Admission and Anticipated Discharge Date Admission Date: August 17, 2021 Subjective 10/19/2021 The patient was seen and examined in telemetry unit and in the Covid room He has pain in complaining of more shortness of breath Requiring 40 L of 90% FiO2 to maintain saturation Has cough Review of Systems Review of Systems: All systems reviewed and are unremarkable except as noted below Respiratory: Moderate shortness of breath at rest Musculoskeletal: Generally weak and lethargic Physical Exam Physical Exam: Sitting on the bed with moderate respiratory distress Constitutional: well developed, well nourished, + ill appearing and + obese Eyes: PERRL, conjunctivae normal, anicteric sclerae ENMT: external ear and nose normal, oropharynx normal Neck: trachea midline, no thyromegaly Respiratory: + respiratory distress and + cough Auscultation: + diminished lung sounds and + crackles (At the bases); no wheezes Gastrointestinal (Abdomen): Inspection/Auscultation: normal bowel sounds; abdomen not distended Percussion/Palpation: abdomen soft; abdomen nontender Lymphatic: no cervical or axillary lymphadenopathy Results & Data Results & Data ([facility]) Vital Signs (Past 12 Hours) Vital Signs Temp Pulse Resp BP Pulse Ox 08/20/21 12:23 36.4 C L 97 H 22 136/78 95 08/20/21 11:08 77 22 92 08/20/21 07:50 79 24 86 L 08/20/21 06:59 36.5 C 96 H 22 142/77 H 88 L 08/20/21 03:10 36.6 C 80 18 123/76 94
[2021-08-20] MEDS: REMDESIVIR 100 MG in SODIUM CHLORIDE 0.9% 230 ML IV SCH (20:03)
[2021-08-21] MEDS: ASPIRIN 81 MG ECTAB PO SCH (09:10)
[2021-08-21] MEDS: dexAMETHasone 6 MG in SYRINGE 0 ML IV SCH (09:10)
[2021-08-21] MEDS: carvediloL 3.125 MG TAB PO SCH ×2 (09:10→20:10)
[2021-08-21] MEDS: ENOXAPARIN INJ 40 MG/0.4 ML SYR SQ SCH (09:10)
[2021-08-21] MEDS: SIMVASTATIN 20 MG TAB PO SCH (09:11)
[2021-08-21] MEDS: guaiFENesin 600 MG TABCR PO SCH ×2 (09:11→20:10)
--- NOTE | 2021-08-21 15:45 | Hospitalist Progress Note ---
Date of Service August 21, 2021 Assessment & Plan (1) Acute respiratory failure with hypoxia: Plan: Sepsis POAin setting of COVID19 pneumonia Secondary to severe COVID-19 pneumonia Has adult respiratory distress syndrome as per CT criteria and clinical symptoms Overall patient is doing okay. Currently on high flow nasal cannula. CTA is negative for any pulmonary embolism. White count at 19.3 . Patient remains afebrile. Hemodynamically doing okay. Decadron and Remdesivir for severe COVID-19 pneumonia. Nebs as needed given wheezing Condition is a little worse and requiring high flow oxygen to maintain saturation CRP has been more than 27 Discussed with hydrodynamicist and Tocilizumab has been administered Condition remains unchanged and may be a little worse We will continue current management Not any better and is still requiring high flow oxygen to maintain saturation Constipation Will start MiraLAX regularly Possible COPD exacerbation No indication for antibiotic Rx for now. Procalcitonin is not elevated-no antibiotics are rated No signs and or symptoms of superinfection hypertension, BP on the lower side hyperlipidemia on statin Rx CRI, serum creatinine better than baseline laryngeal cancer status post partial surgery Hyperglycemia rule out DM Check hemoglobin A1c-6.0 past tobacco abuse. Lovenox for DVT prophylaxis. DVT prophylaxis per Lovenox subcu DNR Prognosis remains poor Ms. Tash Claros, contact #[phone]; daughter was updated today. We will call his daughter today 08/21/2021 . Admission and Anticipated Discharge Date Admission Date: August 17, 2021 Subjective 08/19/2021 The patient was seen and examined in telemetry unit and in the Covid room He has pain in complaining of more shortness of breath Requiring 40 L of 90% FiO2 to maintain saturation Has cough 08/20/2021 The patient was seen and examined 08/21/2021 The patient was seen and examined in telemetry unit and in the Covid room He has been feeling a little better but is still requiring high flow oxygen to maintain saturation He has cough and moderate shortness of breath at rest Review of Systems Review of Systems: All systems reviewed and are unremarkable except as noted below Respiratory: Shortness of breath at rest with cough Physical Exam Physical Exam: Lying in bed with moderate shortness of breath at rest Constitutional: well developed, well nourished, + ill appearing and + obese Eyes: PERRL, conjunctivae normal, anicteric sclerae ENMT: external ear and nose normal, oropharynx normal Neck: trachea midline, no thyromegaly Respiratory: + respiratory distress and + cough Auscultation: + diminished lung sounds and + crackles (At the bases); no wheezes Cardiovascular: Rate/Rhythm: regular rate and regular rhythm; not tachycardic Heart Sounds: normal S1 and normal S2; no murmur Extremities: + edema (Trace edema bilaterally) Gastrointestinal (Abdomen): Inspection/Auscultation: normal bowel sounds; abdomen not distended Percussion/Palpation: abdomen soft; abdomen nontender Neurologic: Alert, awake and oriented x3. Generally weak but no focal sensory or motor deficit appreciated Lymphatic: no cervical or axillary lymphadenopathy Results & Data Results & Data ([facility]) Vital Signs (Past 12 Hours) Vital Signs Temp Pulse Resp BP Pulse Ox 08/21/21 12:27 36.8 C 89 26 H 114/77 97 08/21/21 11:40 103 H 22 92 08/21/21 08:11 36.3 C L 89 24 118/70 88 L 08/21/21 07:48 90 20 92 Medications Administered Current Inpatient Medications Acetaminophen (Acetaminophen 325 Mg Tab) 650 mg PO Q4H PRN PRN Reason: Pain or Fever Stop: 09/17/21 00:49 Last Admin: 08/19/21 12:57 Dose: 650 mg Documented by: Aspirin (Aspirin 81 Mg Ectab) 81 mg PO DAILY [facility] Stop: 09/17/21 08:59 Last Admin: 08/21/21 09:10 Dose: 81 mg Documented by: Carvedilol (Carvedilol 3.125 Mg Tab) 3.125 mg PO BID [facility] Stop: 09/17/21 08:59 Last Admin: 08/21/21 09:10 Dose: 3.125 mg Documented by: Enoxaparin Sodium (Enoxaparin Inj 40 Mg/0.4 Ml Syr) 40 mg SQ QAM [facility] Stop: 09/18/21 08:59 Last Admin: 08/21/21 09:10 Dose: 40 mg Documented by: Guaifenesin (Guaifenesin 600 Mg Tabcr) 600 mg PO Q12 [facility] Stop: 09/17/21 00:49 Last Admin: 08/21/21 09:11 Dose: 600 mg Documented by: Remdesivir 100 mg/ Sodium (Chloride) 250 mls @ 250 mls/hr IV Q24H [facility]; Protocol Stop: 08/21/21 20:59 Last Infusion: 08/20/21 21:20 Dose: Infused Documented by: Promethazine HCl 12.5 mg/ (Sodium Chloride) 50.5 mls @ 202 mls/hr IV Q6H PRN PRN Reason: Nausea And Vomiting Stop: 09/17/21 00:49 Dexamethasone 6 mg/ Syringe 1.5 mls @ 1 mls/min IV DAILY [facility] Stop: 09/17/21 03:49 Last Admin: 08/21/21 09:10 Dose: 1 mls/min Documented by: Levalbuterol HCl (Levalbuterol Tartrate 15 Gm Hfa.Aer.Ad) 2 puffs INH Q4H PRN PRN Reason: sob/wheeze Stop: 09/17/21 00:49 Last Admin: 08/20/21 11:07 Dose: 2 puffs Documented by: Polyethylene Glycol (Polyethylene (Miralax) 17 Gm Pack) 17 gm PO DAILY [facility] Stop: 09/20/21 15:44 Simvastatin (Simvastatin 20 Mg Tab) 20 mg PO DAILY [facility] Stop: 09/17/21 08:59 Last Admin: 08/21/21 09:11 Dose: 20 mg Documented by:
[2021-08-21] MEDS: POLYETHYLENE (MIRALAX) 17 GM PACK PO SCH (17:14)
[2021-08-21] MEDS: REMDESIVIR 100 MG in SODIUM CHLORIDE 0.9% 230 ML IV SCH (20:10)
[2021-08-22] MEDS: ASPIRIN 81 MG ECTAB PO SCH (08:21)
[2021-08-22] MEDS: SIMVASTATIN 20 MG TAB PO SCH (08:21)
[2021-08-22] MEDS: carvediloL 3.125 MG TAB PO SCH ×2 (08:21→20:50)
[2021-08-22] MEDS: ENOXAPARIN INJ 40 MG/0.4 ML SYR SQ SCH (08:21)
[2021-08-22] MEDS: guaiFENesin 600 MG TABCR PO SCH ×2 (08:21→20:50)
[2021-08-22] MEDS: POLYETHYLENE (MIRALAX) 17 GM PACK PO SCH (08:22)
[2021-08-22] MEDS: dexAMETHasone 6 MG in SYRINGE 0 ML IV SCH (08:33)
--- NOTE | 2021-08-22 14:52 | Hospitalist Progress Note ---
Date of Service August 22, 2021 Assessment & Plan (1) Acute respiratory failure with hypoxia: Plan: Sepsis POAin setting of COVID19 pneumonia Secondary to severe COVID-19 pneumonia Has adult respiratory distress syndrome as per CT criteria and clinical symptoms Overall patient is doing okay. Currently on high flow nasal cannula. CTA is negative for any pulmonary embolism. White count at 19.3 . Patient remains afebrile. Hemodynamically doing okay. Decadron and Remdesivir for severe COVID-19 pneumonia. Nebs as needed given wheezing Condition is a little worse and requiring high flow oxygen to maintain saturation CRP has been more than 27 Discussed with partner marketing manager and Tocilizumab has been administered Condition remains unchanged and may be a little worse We will continue current management Not any better and is still requiring high flow oxygen to maintain saturation Has been getting any better and the case was discussed with the We will continue current management Constipation Will start MiraLAX regularly Possible COPD exacerbation No indication for antibiotic Rx for now. Procalcitonin is not elevated-no antibiotics are rated No signs and or symptoms of superinfection hypertension, BP on the lower side hyperlipidemia on statin Rx CRI, serum creatinine better than baseline laryngeal cancer status post partial surgery Hyperglycemia rule out DM Check hemoglobin A1c-6.0 past tobacco abuse. Lovenox for DVT prophylaxis. DVT prophylaxis per Lovenox subcu DNR Prognosis remains poor Ms. Tash Claros, contact #[phone]; daughter was updated today. Discussed with his . Admission and Anticipated Discharge Date Admission Date: August 17, 2021 Subjective 08/19/2021 The patient was seen and examined in telemetry unit and in the Covid room He has pain in complaining of more shortness of breath Requiring 40 L of 90% FiO2 to maintain saturation Has cough 08/20/2021 The patient was seen and examined 08/21/2021 The patient was seen and examined in telemetry unit and in the Covid room He has been feeling a little better but is still requiring high flow oxygen to maintain saturation He has cough and moderate shortness of breath at rest 08/22/2021 The patient was seen and examined in telemetry unit and in the Covid room He has not been doing any better and has been requiring high flow nasal cannula oxygen Has cough and moderate shortness of breath at rest Review of Systems Review of Systems: All systems reviewed and are unremarkable except as noted below Respiratory: Shortness of breath at rest with cough Physical Exam Physical Exam: Lying in bed with moderate shortness of breath at rest Constitutional: well developed, well nourished, + ill appearing and + obese Eyes: PERRL, conjunctivae normal, anicteric sclerae ENMT: external ear and nose normal, oropharynx normal Neck: trachea midline, no thyromegaly Respiratory: + respiratory distress and + cough Auscultation: + diminished lung sounds and + crackles (At the bases); no wheezes Cardiovascular: Rate/Rhythm: regular rate and regular rhythm; not tachycardic Heart Sounds: normal S1 and normal S2; no murmur Extremities: + edema (Trace edema bilaterally) Gastrointestinal (Abdomen): Inspection/Auscultation: normal bowel sounds; ab domen not distended Percussion/Palpation: abdomen soft; abdomen nontender Musculoskeletal: No acute arthritis in any joint Neurologic: Alert, awake and oriented x3, generally very weak and lethargic Lymphatic: no cervical or axillary lymphadenopathy Results & Data Results & Data ([facility]) Vital Signs (Past 12 Hours) Vital Signs Temp Pulse Pulse Pulse Resp BP Pulse Ox 08/22/21 11:49 36.3 C L 85 22 117/90 92 08/22/21 11:35 82 22 92 08/22/21 07:15 36.6 C 95 H 22 121/68 90 08/22/21 05:41 86 26 H 91 08/22/21 04:59 76 08/22/21 04:02 36.5 C 86 20 125/69 91 08/22/21 03:01 78 30 H 90 Medications Administered Current Inpatient Medications Acetaminophen (Acetaminophen 325 Mg Tab) 650 mg PO Q4H PRN PRN Reason: Pain or Fever Stop: 09/17/21 00:49 Last Admin: 08/19/21 12:57 Dose: 650 mg Documented by: Aspirin (Aspirin 81 Mg Ectab) 81 mg PO DAILY [facility] Stop: 09/17/21 08:59 Last Admin: 08/22/21 08:21 Dose: 81 mg Documented by: Carvedilol (Carvedilol 3.125 Mg Tab) 3.125 mg PO BID [facility] Stop: 09/17/21 08:59 Last Admin: 08/22/21 08:21 Dose: 3.125 mg Documented by: Enoxaparin Sodium (Enoxaparin Inj 40 Mg/0.4 Ml Syr) 40 mg SQ QAM [facility] Stop: 09/18/21 08:59 Last Admin: 08/22/21 08:21 Dose: 40 mg Documented by: Guaifenesin (Guaifenesin 600 Mg Tabcr) 600 mg PO Q12 [facility] Stop: 09/17/21 00:49 Last Admin: 08/22/21 08:21 Dose: 600 mg Documented by: Promethazine HCl 12.5 mg/ (Sodium Chloride) 50.5 mls @ 202 mls/hr IV Q6H PRN PRN Reason: Nausea And Vomiting Stop: 09/17/21 00:49 Dexamethasone 6 mg/ Syringe 1.5 mls @ 1 mls/min IV DAILY [facility] Stop: 09/17/21 03:49 Last Admin: 08/22/21 08:33 Dose: 1 mls/min Documented by: Levalbuterol HCl (Levalbuterol Tartrate 15 Gm Hfa.Aer.Ad) 2 puffs INH Q4H PRN PRN Reason: sob/wheeze Stop: 09/17/21 00:49 Last Admin: 08/20/21 11:07 Dose: 2 puffs Documented by: Polyethylene Glycol (Polyethylene (Miralax) 17 Gm Pack) 17 gm PO DAILY [facility] Stop: 09/20/21 15:44 Last Admin: 08/22/21 08:22 Dose: 17 gm Documented by: Simvastatin (Simvastatin 20 Mg Tab) 20 mg PO DAILY [facility] Stop: 09/17/21 08:59 Last Admin: 08/22/21 08:21 Dose: 20 mg Documented by:
[2021-08-23 07:01] LABS: Hematocrit (blood only) 36.7 % (42-52); Hemoglobin 13.1 g/dL (14.0-18.0); Mean Corpuscular Hemoglobin 33.1 pg (25-34); Mean Corpuscular Hgb Conc 35.7 g/dL (32-36); Mean Corpuscular Volume 92.7 fL (80-100); Mean Platelet Volume 10.6 fL (7.4-10.4); Platelet Count 100 K/uL (130-400); RDW Coefficient of Variation 12.6 % (11.5-14.5); RDW Standard Deviation 42.8 fL (36.4-46.3); Red Blood Count 3.96 M/uL (4.7-6.1); White Blood Count 27.27 K/uL (4.8-10.8)
[2021-08-23 07:23] LABS: Basophils # (auto) 0.03 K/uL (0-0.2); Basophils % (auto) 0.1 %; Eosinophils # (auto) 1.15 K/uL (0-0.5); Eosinophils % (auto) 4.2 %; Immature Granulocytes # (auto) 0.33 K/uL (0.00-0.02); Immature Granulocytes % (auto) 1.2 %; Lymphocytes # (auto) 1.85 K/uL (1.2-3.4); Lymphocytes % (auto) 6.8 %; Monocytes # (auto) 0.33 K/uL (0.11-0.59); Monocytes % (auto) 1.2 %; Neutrophils # (auto) 23.58 K/uL (1.4-6.5); Neutrophils % (auto) 86.5 %
[2021-08-23 07:29] LABS: BUN Creatinine Ratio 51.3 (10-20); Calcium 8.6 mg/dl (8.5-10.1); Creatinine Clr Calc Pharmacy 36.1 ml/min; Est GFR (Non-African American) 44.8 ml/min; Magnesium 2.1 mg/dl (1.8-2.4); Potassium 4.5 mmol/L (3.5-5.1)
[2021-08-23] MEDS: dexAMETHasone 6 MG in SYRINGE 0 ML IV SCH (08:41)
[2021-08-23] MEDS: ENOXAPARIN INJ 40 MG/0.4 ML SYR SQ SCH (08:41)
[2021-08-23] MEDS: guaiFENesin 600 MG TABCR PO SCH ×2 (10:09→19:36)
[2021-08-23] MEDS: carvediloL 3.125 MG TAB PO SCH ×2 (10:09→19:36)
[2021-08-23] MEDS: ASPIRIN 81 MG ECTAB PO SCH (10:09)
[2021-08-23] MEDS: SIMVASTATIN 20 MG TAB PO SCH (10:10)
[2021-08-23] MEDS: POLYETHYLENE (MIRALAX) 17 GM PACK PO SCH (10:10)
--- NOTE | 2021-08-23 13:21 | Hospitalist Progress Note ---
Date of Service August 23, 2021 Assessment & Plan (1) Acute respiratory failure with hypoxia: Plan: Sepsis POAin setting of COVID19 pneumonia Secondary to severe COVID-19 pneumonia Has adult respiratory distress syndrome as per CT criteria and clinical symptoms Overall patient is doing okay. Currently on high flow nasal cannula. CTA is negative for any pulmonary embolism. White count at 19.3 . Patient remains afebrile. Hemodynamically doing okay. Decadron and Remdesivir for severe COVID-19 pneumonia. Nebs as needed given wheezing Condition is a little worse and requiring high flow oxygen to maintain saturation CRP has been more than 27 Discussed with software development analyst and Tocilizumab has been administered Condition remains unchanged and may be a little worse We will continue current management Not any better and is still requiring high flow oxygen to maintain saturation Has been getting any better and the case was discussed with the Condition deteriorated and now is on CPAP to maintain saturation The and the daughter are aware Prognosis remains extremely poor Constipation Will start MiraLAX regularly Possible COPD exacerbation No indication for antibiotic Rx for now. Procalcitonin is not elevated-no antibiotics are rated No signs and or symptoms of superinfection hypertension, BP on the lower side hyperlipidemia on statin Rx CRI, serum creatinine better than baseline laryngeal cancer status post partial surgery Hyperglycemia rule out DM Check hemoglobin A1c-6.0 past tobacco abuse. Lovenox for DVT prophylaxis. DVT prophylaxis per Lovenox subcu DNR Prognosis remains poor Ms. Tash Claros, contact #[phone]; daughter was updated today. Discussed with his . Admission and Anticipated Discharge Date Admission Date: August 17, 2021 Subjective 08/19/2021 The patient was seen and examined in telemetry unit and in the Covid room He has pain in complaining of more shortness of breath Requiring 40 L of 90% FiO2 to maintain saturation Has cough 08/20/2021 The patient was seen and examined 08/21/2021 The patient was seen and examined in telemetry unit and in the Covid room He has been feeling a little better but is still requiring high flow oxygen to maintain saturation He has cough and moderate shortness of breath at rest 08/22/2021 The patient was seen and examined in telemetry unit and in the Covid room He has not been doing any better and has been requiring high flow nasal cannula oxygen Has cough and moderate shortness of breath at rest 08/23/2021 The patient was seen and examined in telemetry unit and in the Covid room His condition has been deteriorating and has been on BiPAP to maintain saturation Prognosis remains extremely poor and this was communicated with the daughter and the Review of Systems Review of Systems: All systems reviewed and are unremarkable except as noted below Respiratory: Shortness of breath at rest with cough Physical Exam Physical Exam: Lying in bed with moderate shortness of breath at rest Constitutional: well developed, well nourished, + ill appearing and + obese Eyes: PERRL, conjunctivae normal, anicteric sclerae ENMT: external ear and nose normal, oropharynx normal Neck: trachea midline, no thyromegaly Respiratory: + respiratory distress and + cough Auscultation: + diminished lung sounds and + crackles (At the bases); no wheezes Cardiovascular: Rate/Rhythm: regular rate and regular rhythm; not tachycardic Heart Sounds: normal S1 and normal S2; no murmur Extremities: + edema (Trace edema bilaterally) Gastrointestinal (Abdomen): Inspection/Auscultation: normal bowel sounds; abdomen not distended Percussion/Palpation: abdomen soft; abdomen nontender Musculoskeletal: No acute arthritis in any joint Neurologic: Alert and awake. Pleasantly confused. Extremely weak and lethargic Lymphatic: no cervical or axillary lymphadenopathy Results & Data Results & Data ([facility]) Vital Signs (Past 12 Hours) Vital Signs Temp Pulse Pulse Pulse Resp BP BP 08/23/21 13:11 36.6 C 109 H 24 106/74 08/23/21 11:14 125 H 27 H 08/23/21 10:32 123 H 34 H 08/23/21 08:03 113 H 32 H 08/23/21 08:00 124 H 08/23/21 07:52 112 H 34 H 08/23/21 07:05 36.7 C 103 H 18 117/77 08/23/21 03:22 36.6 C 106 H 20 108/69 08/23/21 01:27 99 H 31 H Pulse Ox 08/23/21 13:11 87 L 08/23/21 11:14 91 08/23/21 10:32 08/23/21 08:03 88 L 08/23/21 08:00 08/23/21 07:52 90 08/23/21 07:05 93 08/23/21 03:22 85 L 08/23/21 01:27 96 Laboratory Results Short CBC 08/23/21 Range/Units 06:42 WBC 27.27 H (4.8-10.8) K/uL Hgb 13.1 L (14.0-18.0) g/dL Hct 36.7 L (42-52) % Plt Count 100 L (130-400) K/uL BMP 08/23/21 06:42 Sodium 137 Potassium 4.5 Chloride 105 Carbon Dioxide 23 BUN 74 H Creatinine 1.45 H Glucose 119 H Calcium 8.6 Medications Administered Current Inpatient Medications Acetaminophen (Acetaminophen 325 Mg Tab) 650 mg PO Q4H PRN PRN Reason: Pain or Fever Stop: 09/17/21 00:49 Last Admin: 08/19/21 12:57 Dose: 650 mg Documented by: Aspirin (Aspirin 81 Mg Ectab) 81 mg PO DAILY [facility] Stop: 09/17/21 08:59 Last Admin: 08/23/21 10:09 Dose: Not Given Documented by: Carvedilol (Carvedilol 3.125 Mg Tab) 3.125 mg PO BID [facility] Stop: 09/17/21 08:59 Last Admin: 08/23/21 10:09 Dose: Not Given Documented by: Enoxaparin Sodium (Enoxaparin Inj 40 Mg/0.4 Ml Syr) 40 mg SQ QAM [facility] Stop: 09/18/21 08:59 Last Admin: 08/23/21 08:41 Dose: 40 mg Documented by: Guaifenesin (Guaifenesin 600 Mg Tabcr) 600 mg PO Q12 [facility] Stop: 09/17/21 00:49 Last Admin: 08/23/21 10:09 Dose: Not Given Documented by: Promethazine HCl 12.5 mg/ (Sodium Chloride) 50.5 mls @ 202 mls/hr IV Q6H PRN PRN Reason: Nausea And Vomiting Stop: 09/17/21 00:49 Dexamethasone 6 mg/ Syringe 1.5 mls @ 1 mls/min IV DAILY [facility] Stop: 09/17/21 03:49 Last Admin: 08/23/21 08:41 Dose: 1 mls/min Documented by: Levalbuterol HCl (Levalbuterol Tartrate 15 Gm Hfa.Aer.Ad) 2 puffs INH Q4H PRN PRN Reason: sob/wheeze Stop: 09/17/21 00:49 Last Admin: 08/20/21 11:07 Dose: 2 puffs Documented by: Polyethylene Glycol (Polyethylene (Miralax) 17 Gm Pack) 17 gm PO DAILY [facility] Stop: 09/20/21 15:44 Last Admin: 08/23/21 10:10 Dose: Not Given Documented by: Simvastatin (Simvastatin 20 Mg Tab) 20 mg PO DAILY [facility] Stop: 09/17/21 08:59 Last Admin: 08/23/21 10:10 Dose: Not Given Documented by:
[2021-08-23] MEDS ORDERED: LEVALBUTEROL HCL 1.25 MG/3 ML NEB NEB PRN (19:49)
[2021-08-23] MEDS ORDERED: LEVALBUTEROL HCL 1.25 MG/3 ML NEB NEB STA (19:49)
[2021-08-24 06:34] LABS: Hemoglobin 12.3 g/dL (14.0-18.0); Mean Corpuscular Hemoglobin 32.3 pg (25-34); Mean Corpuscular Hgb Conc 34.2 g/dL (32-36); Mean Corpuscular Volume 94.5 fL (80-100); Mean Platelet Volume 11.3 fL (7.4-10.4); Platelet Count 52 K/uL (130-400); Red Blood Count 3.81 M/uL (4.7-6.1); White Blood Count 30.76 K/uL (4.8-10.8)
[2021-08-24 06:42] LABS: Basophils # (auto) 0.02 K/uL (0-0.2); Basophils % (auto) 0.1 %; Immature Granulocytes % (auto) 1.3 %; Lymphocytes # (auto) 1.67 K/uL (1.2-3.4); Lymphocytes % (auto) 5.4 %; Monocytes # (auto) 0.46 K/uL (0.11-0.59); Monocytes % (auto) 1.5 %; Neutrophils # (auto) 27.61 K/uL (1.4-6.5); Neutrophils % (auto) 89.7 %
[2021-08-24 07:08] LABS: BUN Creatinine Ratio 45.5 (10-20); Calcium 9.1 mg/dl (8.5-10.1); Creatinine Clr Calc Pharmacy 31.1 ml/min; Est GFR (African American) 43.5 ml/min; Est GFR (Non-African American) 37.5 ml/min; Magnesium 2.4 mg/dl (1.8-2.4); Potassium 5.7 mmol/L (3.5-5.1)
[2021-08-24] MEDS ORDERED: SODIUM POLYSTYRENE SULFONATE 15G/60ML SUSP PO STA (08:14)
[2021-08-24] MEDS ORDERED: INSULIN HUMAN REGULAR PER UNIT 10 UNITS in SYRINGE 9.9 ML IV STA (08:14)
[2021-08-24] MEDS ORDERED: DEXTROSE 50% 50 ML SYRINGE IV ONE (08:14)
[2021-08-24] MEDS: ASPIRIN 81 MG ECTAB PO SCH (09:11)
[2021-08-24] MEDS: carvediloL 3.125 MG TAB PO SCH (09:12)
[2021-08-24] MEDS: guaiFENesin 600 MG TABCR PO SCH (09:12)
[2021-08-24] MEDS: POLYETHYLENE (MIRALAX) 17 GM PACK PO SCH (09:12)
[2021-08-24] MEDS: SIMVASTATIN 20 MG TAB PO SCH (09:13)
[2021-08-24] MEDS: dexAMETHasone 6 MG in SYRINGE 0 ML IV SCH (09:43)
[2021-08-24] MEDS: ENOXAPARIN INJ 40 MG/0.4 ML SYR SQ SCH (09:44)
[2021-08-24] MEDS ORDERED: ONDANSETRON 4 MG OD TAB SL PRN (12:59)
[2021-08-24] MEDS ORDERED: LORazepam 0.5 MG/1 ML VIAL IV PRN (12:59)
[2021-08-24] MEDS ORDERED: chlorproMAZINE HCL 25 MG TAB PO PRN (12:59)
[2021-08-24] MEDS ORDERED: ATROPINE SULFATE 1% OP SOLN 5 ML BTL SL PRN (12:59)
[2021-08-24] MEDS ORDERED: LORazepam 0.5 MG TAB PO PRN (12:59)
[2021-08-24] MEDS: MoRPHine SULFATE 5 MG/0.25 ML UDP PO PRN ×2 (14:47→19:36)
--- NOTE | 2021-08-24 16:27 | Hospitalist Progress Note ---
Date of Service August 24, 2021 Assessment & Plan (1) Need for comfort care: Plan: Condition has deteriorated and aggressive management failed Discussed with the daughter and the patient who wants to be kept comfortable at this stage Nonessential medications have been discontinued and the patient was placed on comfort care only Remains critical but stable (2) Acute respiratory failure with hypoxia: Plan: Other significant medical conditions as below::: Sepsis POAin setting of COVID19 pneumonia Secondary to severe COVID-19 pneumonia Has adult respiratory distress syndrome as per CT criteria and clinical symptoms Overall patient is doing okay. Currently on high flow nasal cannula. CTA is negative for any pulmonary embolism. White count at 19.3 . Patient remains afebrile. Hemodynamically doing okay. Decadron and Remdesivir for severe COVID-19 pneumonia. Nebs as needed given wheezing Condition is a little worse and requiring high flow oxygen to maintain s aturation CRP has been more than 27 Discussed with supervisor histology and Tocilizumab has been administered Condition remains unchanged and may be a little worse We will continue current management Not any better and is still requiring high flow oxygen to maintain saturation Has been getting any better and the case was discussed with the Condition deteriorated and now is on CPAP to maintain saturation The and the daughter are aware Prognosis remains extremely poor Constipation Will start MiraLAX regularly Possible COPD exacerbation No indication for antibiotic Rx for now. Procalcitonin is not elevated-no antibiotics are rated No signs and or symptoms of superinfection hypertension, BP on the lower side hyperlipidemia on statin Rx CRI, serum creatinine better than baseline laryngeal cancer status post partial surgery Hyperglycemia rule out DM Check hemoglobin A1c-6.0 past tobacco abuse. Lovenox for DVT prophylaxis. DVT prophylaxis per Lovenox subcu DNR Prognosis remains poor Ms. Tash Claros, contact #[phone]; daughter was updated today. Discussed with his . Admission and Anticipated Discharge Date Admission Date: August 17, 2021 Subjective 08/19/2021 The patient was seen and examined in telemetry unit and in the Covid room He has pain in complaining of more shortness of breath Requiring 40 L of 90% FiO2 to maintain saturation Has cough 08/20/2021 The patient was seen and examined 08/21/2021 The patient was seen and examined in telemetry unit and in the Covid room He has been feeling a little better but is still requiring high flow oxygen to maintain saturation He has cough and moderate shortness of breath at rest 08/22/2021 The patient was seen and examined in telemetry unit and in the Covid room He has not been doing any better and has been requiring high flow nasal cannula oxygen Has cough and moderate shortness of breath at rest 08/23/2021 The patient was seen and examined in telemetry unit and in the Covid room His condition has been deteriorating and has been on BiPAP to maintain saturation Prognosis remains extremely poor and this was communicated with the daughter and the 08/24/2021 The patient was seen and examined in medical telemetry unit and in the Covid room in presence of his His condition has deteriorated Requiring high flow oxygen and CPAP to maintain saturation Remains pleasantly confused and extremely weak and tired Discussed with the and the patient was met for comfort care only Review of Systems Review of Systems: Unobtainable due to cognitive status Physical Exam Physical Exam: Lying in bed with moderate shortness of breath at rest Constitutional: well developed, well nourished, + ill appearing and + obese Eyes: PERRL, conjunctivae normal, anicteric sclerae ENMT: external ear and nose normal, oropharynx normal Neck: trachea midline, no thyromegaly Respiratory: + respiratory distress and + cough Auscultation: + diminished lung sounds and + crackles (At the bases); no wheezes Cardiovascular: Rate/Rhythm: regular rate and regular rhythm; not tachycardic Heart Sounds: normal S1 and normal S2; no murmur Extremities: + edema (Trace edema bilaterally) Gastrointestinal (Abdomen): Inspection/Auscultation: normal bowel sounds; abdomen not distended Percussion/Palpation: abdomen soft; abdomen nontender Neurologic: Alert and awake. Minimally communicative. Pleasantly confused. Extremely weak and tired Lymphatic: no cervical or axillary lymphadenopathy Results & Data Results & Data ([facility]) Vital Signs (Past 12 Hours) Vital Signs Temp Pulse Pulse Pulse Resp BP Pulse Ox 08/24/21 14:40 30 H 93 08/24/21 13:55 121 H 24 91 08/24/21 11:24 127 H 08/24/21 11:05 121 H 26 H 95 08/24/21 11:04 36.8 C 124 H 22 104/70 95 08/24/21 08:00 105 H 08/24/21 07:24 116 H 24 92 11/01/21 06:32 112 H 24 112/58 L 95 Laboratory Results Short CBC 08/24/21 Range/Units 05:37 WBC 30.76 H* (4.8-10.8) K/uL Hgb 12.3 L (14.0-18.0) g/dL Hct 36.0 L (42-52) % Plt Count 52 L (130-400) K/uL BMP 08/24/21 05:37 Sodium 138 Potassium 5.7 H D Chloride 105 Carbon Dioxide 25 BUN 76 H Creatinine 1.68 H Glucose 132 H Calcium 9.1 Medications Administered Current Inpatient Medications Atropine Sulfate (Atropine Sulfate 1% Op Soln 5 Ml Btl) 4 drops SL Q1H PRN PRN Reason: Secretions or pulm congestion Stop: 09/23/21 12:58 Chlorpromazine HCl (Chlorpromazine Hcl 25 Mg Tab) 25 mg PO Q6H PRN PRN Reason: Hiccups Stop: 09/23/21 12:58 Lorazepam (Ativan) 0.5 mg in 1 mls @ 1 mls/min IV Q4H PRN PRN Reason: Anxiety/Agitation Stop: 09/23/21 12:58 Lorazepam (Lorazepam 0.5 Mg Tab) 0.5 mg PO Q4H PRN PRN Reason: Anxiety/Agitation Stop: 09/23/21 12:58 Morphine Sulfate (Morphine Sulfate 5 Mg/0.25 Ml Udp) 5 mg PO Q3H PRN PRN Reason: Pain or Respiratory Distress Stop: 09/07/21 12:58 Last Admin: 08/24/21 14:47 Dose: 5 mg Documented by: Ondansetron HCl (Ondansetron 4 Mg Od Tab) 4 mg SL Q4H PRN PRN Reason: Nausea &/or Vomiting Stop: 09/23/21 12:58
[2021-08-24] MEDS ORDERED: HYDROmorphone INJ 0.5 MG/0.5 ML SYR IV PRN (20:48)
[2021-08-24] MEDS ORDERED: LORazepam 0.5 MG/1 ML VIAL IV STA (20:48)
[2021-08-24] MEDS ORDERED: STAT IV Infusion **Titration per Protocol STA (21:26)
[2021-08-24] MEDS ORDERED: MoRPHine SULF/NSS 250 MG/250 ML BTL IV SCH (22:00)
[2021-08-24] MEDS ORDERED: SCOPOLAMINE 1 MG TDSY TD SCH (22:00)
[2021-08-25] MEDS ORDERED: CHECK SCOPOLAMINE PATCH PLACEMENT SCH
--- NOTE | 2021-09-02 08:50 | Discharge Summary ---
Date of Service September 02, 2021 Admission HPI Per Admitting Provider History obtained from patient, family, and records. History somewhat limited from patient secondary to hearing impairment. Medical history significant for COPD, chronic vocal cord paralysis, hypertension, hyperlipidemia, PVD, CRI (baseline creatinine 1.3), laryngeal cancer status post partial surgery, past tobacco abuse. Last confinement August 2018 for pneumonia. 1 week history of dry cough symptoms, and generalized weakness with worsening shortness of breath. No actual chest pain. GI upset with diarrhea symptoms. Possible sick COVID-19 contacts. Patient has not received COVID-19 vaccination. O2 sats 80s at the ER. Patient given Decadron at the ER. Ceftriaxone given for pneumonia. 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 Admission Exam Per Admitting Provider Physical Exam: GENERAL: Slightly uncomfortable, hard of hearing, dysphonic, minimal respiratory distress SKIN: Normal color, warm HEENT: [place] palpebral conjunctivae, no ptosis, dry buccal mucosa, nasal cannula in place NECK : Supple, no tenderness CHEST : Decreased breath sounds, occasional expiratory wheezes, no tenderness HEART : Tachycardic, no obvious murmurs ABDOMEN: Some distention, nontender EXTREMITIES : No LE swelling/tenderness, no other conspicuous deformities noted NEUROLOGIC : Coherent, no facial asymmetry, hard of hearing, dysphonic, no other gross focality Principal Diagnosis on 08/24/2021 at 2342hours. Causes of : Covid 19 Pneumonia,Covid 19 virus infection Discharge Data Allergies Allergy/AdvReac Type Severity Reaction Status Date / Time Sulfa (Sulfonamide Allergy Unknown Verified 08/17/21 19:42 Antibiotics) Consultations 08/17/21 21:59 ED Decision to Admit Stat Ordered Studies 08/17/21 20:49 CT angio chest PE protocol Urgent Hospital Course (1) Need for comfort care: Condition has deteriorated and aggressive management failed Discussed with the daughter and the patient who wants to be kept comfortable at this stage Nonessential medications have been discontinued and the patient was placed on comfort care only Remains critical but stable (2) Acute respiratory failure with hypoxia: Other significant medical conditions as below::: Sepsis POAin setting of COVID19 pneumonia Secondary to severe COVID-19 pneumonia Has adult respiratory distress syndrome as per CT criteria and clinical symptoms Overall patient is doing okay. Currently on high flow nasal cannula. CTA is negative for any pulmonary embolism. White count at 19.3 . Patient remains afebrile. Hemodynamically doing okay. Decadron and Remdesivir for severe COVID-19 pneumonia. Nebs as needed given wheezing Condition is a little worse and requiring high flow oxygen to maintain saturation CRP has been more than 27 Discussed with international travel consultant and Tocilizumab has been administered Condition remains unchanged and may be a little worse We will continue current management Not any better and is still requiring high flow oxygen to maintain saturation Has been getting any better and the case was discussed with the Condition deteriorated and now is on CPAP to maintain saturation The and the daughter are aware Prognosis remains extremely poor Constipation Will start MiraLAX regularly Possible COPD exacerbation No indication for antibiotic Rx for now. Procalcitonin is not elevated-no antibiotics are rated No signs and or symptoms of superinfection hypertension, BP on the lower side hyperlipidemia on statin Rx CRI, serum creatinine better than baseline laryngeal cancer status post partial surgery Hyperglycemia rule out DM Check hemoglobin A1c-6.0 past tobacco abuse. Lovenox for DVT prophylaxis. DVT prophylaxis per Lovenox subcu DNR Prognosis remains poor Ms. Tash Claros, contact #[phone]; daughter was updated today. Discussed with his . Total Time Total Time Spent Total Time Spent (In Minutes): 20 minutes Discharge Plan Discharge Items Patient Disposition: Other Date/Time: 08/24/21 23:42
== END 2021-08-24 23:42 | disposition expired | DRG 871 ==
LOC: ED 19:09 → 2S 23:31 → SUATTDRO 23:31 → 2S 23:57 → 2E 08-23 10:04 → 2W 08-24 10:46